=== PATIENT | female | born 1955 | race Caucasian/White ===

== ENCOUNTER 2016-05-08 08:31 | Day surgery (SDC) | payer BC ==
--- NOTE | ~2016-05-08 | EGD ---
EGD REPORT [facility] [address] [address] NAME: GRAZYNA HERR : [birth year] [place]US [place] [facility] [facility] [place] [id number] AGE: 61 ADM/REG DATE : 05/08/16 MR#: [id number] REPORT SERV DATE: 05/08/16 DICTATED BY: MARIANO POWELL DATE: 05/08/16 REPORT STATUS : Draft [facility]ANSCRIBED BY: [facility] DATE: 05/08/16 Endoscopy Center Patient Name: Grazyna Herr Date of : 1955 Attending MD: MARIANO POWELL MD Procedure Date No Time: 05/08/2016 Procedure: Colonoscopy Indications: Screening for colorectal malignant neoplasm Referring MD: CAMILO DELANEY Medicines: as per anesthesia Complications: No immediate complications. Procedure: Pre-Anesthesia Assessment: - ASA Grade Assessment: II - A patient with mild systemic disease. After I obtained informed consent, the scope was passed under direct vision. Throughout the procedure, the patient's blood pressure, pulse, and oxygen saturations were monitored continuously. The PCF [id number] was introduced through the anus and advanced to the cecum, identified by appendiceal orifice and ileocecal valve. The colonoscopy was performed without difficulty. The patient tolerated the procedure well. The quality of the bowel preparation was adequate to identify polyps. Findings: The perianal and digital rectal examinations were normal. Internal hemorrhoids were found during endoscopy and were mild. Impression: - Internal hemorrhoids. Recommendation: - Repeat colonoscopy in 10 years for surveillance. Procedure Code(s): --- Professional --- 48872, Colonoscopy, flexible, proximal to splenic flexure; diagnostic, with or without collection of specimen(s) by brushing or washing, with or without colon decompression (separate procedure) Diagnosis Code(s): --- Professional --- K64.8, Other hemorrhoids Z12.11, Encounter for screening for malignant neoplasm of colon CPT copyright 2013 [employer]. All rights reserved. EGD REPORT [facility] [address] [address] NAME: GRAZYNA HERR : [birth year] [place]US [place] [facility] [place] [id number] AGE: 61 ADM/REG DATE : 05/08/16 MR#: [id number] REPORT SERV DATE: 05/08/16 DICTATED BY: MARIANO POWELL. DATE: 05/08/16 REPORT STATUS : Draft TRANSCRIBED BY: [employer] DATE: 05/08/16 The codes documented in this report are preliminary and upon block piler review may be revised to meet current compliance requirements. MARIANO POWELL MD 05/08/2016 10:32 AM This report has been signed electronically. Number of Addenda: 0 Note Initiated On: 05/08/2016 10:01 AM Scope Withdrawal Time 0 hours 7 minutes 41 seconds [address] [id number]
[~2016-05-08 08:31] MED LIST: ASAB PO; CALCIUM; CALTRA600D PO; LISINOPRIL; PRILOSEC OTC20 MG PO; PRIN5 PO; PROTONIX PO; QUERCETIN; SYN88 PO; SYNTHROID
== END 2016-05-08 23:59 | disposition home or self-care (01) ==
LOC: DMU 08:31
PROVIDERS: Internal Medicine Gastroenterology
PROC: 0DJD8ZZ Inspection of Lower Intestinal Tract, Via Natural or Artificial Opening Endoscopic (ICD-10-PCS; principal; 2016-05-08 09:30)
DX: Z12.11 Encounter for screening for malignant neoplasm of colon (principal); K64.8 Other hemorrhoids; I10 Essential (primary) hypertension; K21.9 Gastro-esophageal reflux disease without esophagitis; Z88.5 Allergy status to narcotic agent; H91.90 Unspecified hearing loss, unspecified ear; Z90.49 Acquired absence of other specified parts of digestive tract; Z90.710 Acquired absence of both cervix and uterus; E03.9 Hypothyroidism, unspecified; Z98.890 Other specified postprocedural states; Z79.82 Long term (current) use of aspirin; Z79.899 Other long term (current) drug therapy